=== PATIENT | male | born 1965 | race Caucasian/White ===

== ENCOUNTER 2017-05-19 22:20 | Emergency (ER) | payer BC ==
[~2017-05-19] VITALS: Ht 182.9 cm; Wt 86.4 kg
[~2017-05-19 22:20] MED LIST: CIPRO250 M1 PO; FLOMAX0.4 MG PO; PERCOCET 325 MG1 TA2 PO
[2017-05-19] MEDS ORDERED: PROZAC40 M1 PO (22:30)
[2017-05-19] MEDS ORDERED: WELLBUTRIN (22:30)
[2017-05-20 00:17] VITALS: BP 120/70
== END 2017-05-20 00:17 | disposition home or self-care (01) ==
LOC: ED 22:20
DX: N23 Unspecified renal colic (principal); R11.0 Nausea; R10.31 Right lower quadrant pain; R29.898 Other symptoms and signs involving the musculoskeletal system; F41.9 Anxiety disorder, unspecified; F32.9 Major depressive disorder, single episode, unspecified
CPT/HCPCS: J1885; J7030

== ENCOUNTER 2017-05-23 19:15 | Emergency (ER) | payer BC ==
[~2017-05-23] VITALS: Ht 182.9 cm; Wt 86.4 kg
[~2017-05-23 19:15] MED LIST changes: +PROZAC40 M1 PO; +WELLBUTRIN
[2017-05-23 20:48] VITALS: BP 147/87
== END 2017-05-23 20:48 | disposition home or self-care (01) ==
LOC: ED 19:15
DX: N13.2 Hydronephrosis with renal and ureteral calculous obstruction (principal); Z87.442 Personal history of urinary calculi; F41.9 Anxiety disorder, unspecified; F32.9 Major depressive disorder, single episode, unspecified
CPT/HCPCS: J1885; J2405; J7030